=== PATIENT | female | born 1980 | race Hispanic/Latino ===

== ENCOUNTER → 2017-11-24 07:42 | Outpatient (CLI) | payer SELFPAY ==
[2017-11-24 08:32] LABS: Add Manual Diff / Slide Review NO; Basophils Percent Auto 0.5 % (0-2); Eosinophils Percent Auto 1.1 % (2-4); Hematocrit 41.2 % (36-46); Hemoglobin 13.9 g/dL (12.0-16.0); Lymphocytes Percent Auto 34.4 % (25-40); Mean Corpuscular HGB Conc 33.6 % (30-36); Mean Corpuscular Hemoglobin 30.7 PG (26-34); Mean Corpuscular Volume 91.2 fL (80-100); Monocytes Percent Auto 8.6 % (3-14); Neutrophils Absolute Auto 4200 /uL (3000-5900); Neutrophils Percent Auto 55.4 % (50-75); Platelet Count 260 X10^3/uL (150-400); Red Blood Cell Count 4.52 X10^6/uL (4.0-5.2); Red Cell Distribution Width 13.5 % (11.6-14.8); White Blood Cell Count 7.6 X10^3/uL (4.5-11.0)
[2017-11-24 08:41] LABS: Alanine Aminotransferase 43 IU/L (9-52); Albumin 4.1 g/dL (3.5-5.0); Albumin Globulin Ratio 1.4 (1.0-2.8); Alkaline Phosphatase 77 U/L (38-126); Aspartate Aminotransferase 23 IU/L (14-36); Bilirubin Total 0.6 mg/dL (0.2-1.3); Blood Urea Nitrogen 12 mg/dL (7-17); Calcium 8.4 mg/dL (8.4-10.2); Carbon Dioxide 26 mmol/L (22-32); Chloride 105 mmol/L (98-107); Cholesterol 162 mg/dL (140-199); Estimated Glomerular Filt Rate > 60.0 mL/min (>60); Glucose 114 mg/dL (70-100); HDL Cholesterol 39 mg/dL (40-60); HEMOLYSIS < 15 (0-50); LDL Cholesterol Calculated 107 mg/dL (<100); Potassium 4.2 mmol/L (3.4-5.1); Sodium 140 mmol/L (137-145); Total Protein 7.1 g/dL (6.3-8.2); Triglycerides 80 mg/dL (35-150)
[2017-11-26 10:01] LABS: Hemoglobin A1C% w Est Avg Glu 5.8 % (4.0-6.0)
== END ==
PROVIDERS: Visit Provider Internal Medicine
DX: Z00.00 Encounter for general adult medical examination without abnormal findings (principal); R73.09 Other abnormal glucose
CPT/HCPCS: 36415; 80053; 80061; 83036; 84443; 85025

== ENCOUNTER → 2017-12-12 14:34 | Outpatient (CLI) | payer SELFPAY ==
--- NOTE | 2017-12-12 14:43 | DI.MG.S_ITS ---
BILATERAL DIGITAL DIAGNOSTIC MAMMOGRAM 3D/2D: 12/12/2017 CLINICAL: Pain left breast. Baseline exam. No prior exams were available for comparison. The tissue of both breasts is extremely dense, which lowers the sensitivity of mammography. No significant masses, calcifications, or other findings are seen in either breast. IMPRESSION: INCOMPLETE: NEEDS ADDITIONAL IMAGING EVALUATION There is no abnormality seen in the left breast to correspond with the area of clinical concern, however, ultrasound is recommended. This exam was interpreted at Station ID: [id number]. NOTE: For mammograms, a report in lay terms will be sent to the patient. Approximately 15% of breast malignancies will not be visualized mammographically. In the management of a palpable breast mass, a negative mammogram must not discourage biopsy of a clinically suspicious lesion. Electronically Signed By: Jourdan wilde/jaquan:12/12/2017 22:38:22 ACR BI-RADS Category 0: Incomplete [id number]
--- NOTE | 2017-12-12 14:43 | DI.US.S_ITS ---
ULTRASOUND OF LEFT BREAST: 12/12/2017 CLINICAL: Focal left breast pain. Comparison is made to exam dated: 12/12/2017 [facility]. Color flow ultrasound of the left breast was performed. Lomas scale images of the real-time examination were reviewed. IMPRESSION: NEGATIVE There is no sonographic evidence of malignancy. There is no abnormality seen in the left breast to correspond with the area of clinical concern, however, clinical followup is recommended. A 1 year screening mammogram is recommended. This exam was interpreted at Station ID: [id number]. Electronically Signed By: Jourdan wilde/jaquan:12/12/2017 22:38:49 letter sent: Clinical Evaluation Ultrasound BI-RADS: 1 Negative
== END ==
PROVIDERS: PCP Obstetrics & Gynecology; Visit Provider Internal Medicine
DX: R92.8 Other abnormal and inconclusive findings on diagnostic imaging of breast (principal); N64.4 Mastodynia
CPT/HCPCS: 76642; 77066; G0279

== ENCOUNTER 2018-10-07 10:28 | Emergency (ER) | payer OTHER, SELFPAY ==
[2018-10-07 10:34] VITALS: BP 152/86; PULSE 86; RESP 14; TEMP 36.6; O2SAT 98
[2018-10-07] MEDS: ACETAMINOPHEN 325 MG TABLET 975 MG PO (11:27)
--- NOTE | 2018-10-07 13:34 | DI.RAD.S_ITS ---
PROCEDURE: XR LUMBAR SPINE 2-3V INDICATIONS: fell on lumbar back over edge of tub, tenderness mid lumbar TECHNIQUE: 2 views of the lumbar spine were acquired. COMPARISON: None. FINDINGS: Bones: 5 [id number] vertebrae are present. There is normal bony alignment. No vertebral body compression fractures. No suspicious bony lesions. There is mild degenerative disc disease at L3-L4 and L4-L5. Soft tissues: Overlying bowel gas pattern is normal. No suspicious soft tissue calcifications. IMPRESSION: No fractures. Mild degenerative disc disease. Dictated by: Gagan Rivera M.D. on 10/07/2018 at 13:22 Approved by: Gagan Rivera M.D. on 10/07/2018 at 13:24
--- NOTE | 2018-10-07 13:52 | ED.FALL ---
HPI - Fall <MARIEL Leach - Last Filed: 10/08/18 00:31> General Chief Complaint: Fall Stated Complaint: FELL AND BUMPED HEAD AND HIT ARM Time Seen by Provider: 10/07/18 13:05 Source: patient Mode of arrival: ambulatory Limitations: no limitations History of Present Illness HPI Narrative: Healthy 37-year-old female, presents to the emergency department after a fall work while trying to change a shower curtain. She tripped and fell backwards into the tub while hitting the back of her head, her low back, and the ulnar aspect of both forearms bilaterally on the tub. Complains of 3/10 dull aching pain to occipital region and lumbar spine, pain worse with palpation but not movement. She felt a little bit dizzy after the fall and again at felt dizzy and diaphoretic which lasted 1-2 minutes and then resolved. Denies loss of consciousness, headache, neck pain with movement, vision changes at this time, fatigue, bleeding, nausea vomiting or diarrhea, chest pain. Denies symptoms such as chest pain, dizziness, confusion prior to fall. MD complaint: fall Onset (ago): minute(s) Fall from: standing Fall witnessed: no Place fall occurred: work Loss of consciousness: none Prolonged down time: no Symptoms prior to fall: none Context: tripped/slipped Location of injury: head and back Severity: mild Severity scale (1-10): 3 Quality: aching Related Data Previous Rx's Medication Instructions Recorded ibuprofen [IBU] 800 mg PO Q8H PRN #14 tab 10/07/18 Allergies Allergy/AdvReac Type Severity Reaction Status Date / Time No Known Drug Allergies Allergy Verified 10/07/18 10:36 Review of Systems <MARIEL Leach - Last Filed: 10/08/18 00:31> Constitutional Denies chills, Denies fever(s), Denies lethargy and Denies weakness Eyes Denies eye discharge, Denies irritation and Denies loss of vision ENT Ears, Nose, Mouth, and Throat: Denies change in voice, Reports neck pain and Denies sore throat Cardiovascular Denies chest pain, Denies irregular heart rhythm, Denies lightheadedness, Denies palpitations, Denies dyspnea, Denies dyspnea on exertion and Denies orthopnea Respiratory Denies cough, Denies dyspnea, Denies dyspnea on exertion and Denies wheezing Gastrointestinal Gastrointestinal: Denies abdominal pain, Denies change in bowel habits, Denies diarrhea, Denies nausea and Denies vomiting Genitourinary Denies hematuria, Denies flank pain, Denies urinary incontinence and Denies urinary urgency Musculoskeletal Reports neck pain Comments: Back pain. Integumentary/Breasts Denies pruritus, Denies erythema, Denies rash and Denies wounds Neurologic Denies confusion, Denies loss of vision and Denies weakness Psychiatric Denies anxiety, Denies confusion, Denies depression, Denies homicidal ideation and Denies suicidal ideation Endocrine Denies palpitations Hematologic/Lymphatic Denies easy bruising Allergic/Immunologic Denies wheezing Exam <Sue MARIEL Alonzo - Last Filed: 10/08/18 00:31> Initial Vital Signs Initial Vital Signs: Vital Signs Temperature 97.9 F 10/07/18 10:34 Pulse Rate 86 10/07/18 10:34 Respiratory Rate 14 10/07/18 10:34 Blood Pressure 152/86 H 10/07/18 10:34 Pulse Oximetry 98 10/07/18 10:34 Const General: cooperative and well developed Nutritional Appearance: well nourished Orientation: alert, awake, oriented x3 and not confused [facility] Head: normocephalic, atraumatic, contusion (Small hematoma 2cm in diameter to right parietal area ), hematoma, No laceration, No raccoon eyes and No scalp tenderness Ears: external ears normal and TM's normal bilaterally Nose: external nose normal and No nasal discharge Face and sinus: sinuses nontender, face symmetric, no sinus tenderness and No dry mucous membranes Mouth: oral mucosae normal and moist mucous membranes Teeth and gingiva: dentition normal Throat: tonsils normal and uvula midline Eyes General: appearance normal, both eyes and all related structures Eyelids: eyelids normal Conjunctivae: conjunctivae normal Sclera: sclerae normal Pupils: PERRL EOM: EOM intact bilaterally Neck Neck: normal visual inspection, trachea midline, No lymphadenopathy, No midline deformity, tender (Paraspinal tenderness, no bony tenderness, FROM) and No JVD Lymphatic: No lymphedema Chest Chest: normal inspection of the chest Resp Effort & Inspection: normal respiratory effort, able to speak in complete sentences, no respiratory distress and no use of accessory muscles Auscultation: clear to auscultation bilaterally, no rales, no rhonchi and no wheezes Cardio Rate: regular rate Rhythm: regular rhythm Heart Sounds: no click, no gallops, no murmurs and no rubs Pulses: normal peripheral pulses GI Inspection: non-distended Palpation: soft, no hepatosplenomegaly, No guarding, No pulsatile mass and No tender Auscultation: normal bowel sounds Back/Spine/Pelvis Back: No CVA tenderness Cervical Spine: cervical ROM normal and No pain with cervical ROM Thoracic/Lumbar Spine: No thoracic spinal tenderness and lumbar spinal tenderness (with palpation) Sacroiliac Joints: nontender Skin General: no rashes or lesions noted, No jaundice and No petechiae Neuro General: alert, oriented x3, gait normal and no focal motor deficits Cranial Nerves: CN's II-XI intact bilaterally Speech: speech normal Extrem General: full ROM, no clubbing, cyanosis or edema, no pedal edema and no calf tenderness Psych Appearance: well kempt Mental Status: mental status grossly normal Attitude: cooperative Thought Content: normal and suicidality Judgment: judgment good <Nora Gonzales DO - Last Filed: 10/09/18 07:29> Initial Vital Signs Initial Vital Signs: Vital Signs Temperature 97.9 F 10/07/18 10:34 Pulse Rate 86 10/07/18 10:34 Respiratory Rate 14 10/07/18 10:34 Blood Pressure 152/86 H 10/07/18 10:34 Pulse Oximetry 98 10/07/18 10:34 PFSH <MARIEL Leach - Last Filed: 10/08/18 00:31> Medical History No significant medical problems (Acute) Family History (Updated 12/03/17 @ 21:04 by Snow Reeder) Mother Age: 76 Hypertension High cholesterol Father Diabetes mellitus Stroke Social History Smoking Status: Never smoker Family History Mother Age: 76 Hypertension High cholesterol Father Diabetes mellitus Stroke Social History Smoking Status: Never smoker Scores <MARIEL Leach - Last Filed: 10/08/18 00:31> Nexus Score for C-Spine Focal Neurologic deficit present: No Midline spinal tenderness present: No Altered level of conciousness present: No Intoxication present: No Distracting Injury Present: No Nexus Criteria for C-spine: 0 Course <MARIEL Leach - Last Filed: 10/08/18 00:31> Orders Ordered: Discontinued Medications Acetaminophen (Tylenol) 975 mg PO NOW ONE Stop: 10/07/18 11:17 Last Admin: 10/07/18 11:27 Dose: 975 mg Consultations Consultation #1: Staffed with Dr. Gonzales who agreed with plan of care Vital Signs - 8 hr 10/07/18 10:34 Temperature 97.9 F Pulse Rate 86 Respiratory Rate 14 Blood Pressure 152/86 H Pulse Oximetry 98 <Nora Gonzales DO - Last Filed: 10/09/18 07:29> Orders Ordered: Discontinued Medications Acetaminophen (Tylenol) 975 mg PO NOW ONE Stop: 10/07/18 11:17 Last Admin: 10/07/18 11:27 Dose: 975 mg Vital Signs - 8 hr 10/07/18 10:34 Temperature 97.9 F Pulse Rate 86 Respiratory Rate 14 Blood Pressure 152/86 H Pulse Oximetry 98 MDM - Fall <MARIEL Leach - Last Filed: 10/08/18 00:31> Medical Records Attestation: I reviewed the patient's medical records. Lab Data Attestation: I reviewed the patient's lab results. Point of Care Testing Test Results Negative Imaging Data Lumbar X-ray: Attestation: I personally reviewed and interpreted this imaging study as follows: Radiologist's impression: [address] [address] XRay Report Signed Patient: Brianne Wade#: [id number] : 1980Acct:[id number] Age/Sex: 37 / FDate of Service: 10/07/18 Loc: ED Accession Number: [id number] Procedure: XR lumbar spine 2-3V Ordering Provider: Sue Alonzo PROCEDURE: XR LUMBAR SPINE 2-3V INDICATIONS: fell on lumbar back over edge of tub, tenderness mid lumbar TECHNIQUE: 2 views of the lumbar spine were acquired. COMPARISON: None. FINDINGS: Bones: 5 [id number] vertebrae are present. There is normal bony alignment. No vertebral body compression fractures. No suspicious bony lesions. There is mild degenerative disc disease at L3-L4 and L4-L5. Soft tissues: Overlying bowel gas pattern is normal. No suspicious soft tissue calcifications. IMPRESSION: No fractures. Mild degenerative disc disease. Dictated by: Gagan Rivera M.D. on 10/07/2018 at 13:22 Approved by: Gagan Rivera M.D. on 10/07/2018 at 13:24 [facility] Narrative Medical decision making narrative: I suspect her symptoms are caused by muscle strain due to mechanism of injury, negative x-rays, nexus score of 0, intact neuro exam, tenderness paraspinal muscles. Less likely intracranial injury, or concussion, due to resolve symptoms and exam. I suspect her symptoms post fall or from a vagal response. Strict return precautions were discussed, work note was given per request. Follow up discussed for continued pain and soreness. <Nora Gonzales DO - Last Filed: 10/09/18 07:29> Lab Data Point of Care Testing Test Results Negative Discharge Plan Departure Patient Disposition: Home Clinical Impression: Fall Qualifiers: Encounter type: initial encounter Qualified Code(s): W19.XXXA - Unspecified fall, initial encounter Back pain Qualifiers: Back pain location: low back pain Chronicity: acute Back pain laterality: midline Sciatica presence: without sciatica Qualified Code(s): M54.5 - Low back pain Discharge Date/Time: 10/07/18 14:57 Interventions: ED Discharge Assessment Last Done: 10/07/18 14:57 Instructions: DI for Concussion, DI for Low Back Pain Activity Restrictions/Additional Instructions: Thank you for the entrusting me with you care today. Based on your exam today under x-ray, and appears ear pain is from bruising and muscle strain. Please take ibuprofen as needed for pain. Follow up with her primary care provider in 1-2 weeks if the pain has not resolved. Return to the emergency department for syncope, double vision or vision loss, chest pain, or confusion. Prescriptions: New ibuprofen [IBU] 800 mg tablet 800 mg PO Q8H PRN (Reason: pain) Qty: 14 RF: 0 Referrals: Shanice Bautista MD [Primary Care Provider] - Stand Alone Forms: Work Release Note <Nora Gonzales DO - Last Filed: 10/09/18 07:29> Cosign ED Attending Cosignature Attestation: I was immediately available in the department for consultation. This documentation has been reviewed and I agree with assessment and plan. Supervised by Nora Gonzales,
--- NOTE | 2018-10-07 14:02 | ED_ITS ---
HPI - Fall <MARIEL Leach - Last Filed: 10/08/18 00:31> General Chief Complaint: Fall Stated Complaint: FELL AND BUMPED HEAD AND HIT ARM Time Seen by Provider: 10/07/18 13:05 Source: patient Mode of arrival: ambulatory Limitations: no limitations History of Present Illness HPI Narrative: Healthy 37-year-old female, presents to the emergency department after a fall work while trying to change a shower curtain. She tripped and fell backwards into the tub while hitting the back of her head, her low back, and the ulnar aspect of both forearms bilaterally on the tub. Complains of 3/10 dull aching pain to occipital region and lumbar spine, pain worse with palpation but not movement. She felt a little bit dizzy after the fall and again at felt dizzy and diaphoretic which lasted 1-2 minutes and then resolved. Denies loss of consciousness, headache, neck pain with movement, vision changes at this time, fatigue, bleeding, nausea vomiting or diarrhea, chest pain. Denies symptoms such as chest pain, dizziness, confusion prior to fall. MD complaint: fall Onset (ago): minute(s) Fall from: standing Fall witnessed: no Place fall occurred: work Loss of consciousness: none Prolonged down time: no Symptoms prior to fall: none Context: tripped/slipped Location of injury: head and back Severity: mild Severity scale (1-10): 3 Quality: aching Related Data Previous Rx's Medication Instructions Recorded ibuprofen [IBU] 800 mg PO Q8H PRN #14 tab 10/07/18 Allergies Allergy/AdvReac Type Severity Reaction Status Date / Time No Known Drug Allergies Allergy Verified 10/07/18 10:36 Review of Systems <MARIEL Leach - Last Filed: 10/08/18 00:31> Constitutional Denies chills, Denies fever(s), Denies lethargy and Denies weakness Eyes Denies eye discharge, Denies irritation and Denies loss of vision ENT Ears, Nose, Mouth, and Throat: Denies change in voice, Reports neck pain and Denies sore throat Cardiovascular Denies chest pain, Denies irregular heart rhythm, Denies lightheadedness, Denies palpitations, Denies dyspnea, Denies dyspnea on exertion and Denies orthopnea Respiratory Denies cough, Denies dyspnea, Denies dyspnea on exertion and Denies wheezing Gastrointestinal Gastrointestinal: Denies abdominal pain, Denies change in bowel habits, Denies diarrhea, Denies nausea and Denies vomiting Genitourinary Denies hematuria, Denies flank pain, Denies urinary incontinence and Denies urinary urgency Musculoskeletal Reports neck pain Comments: Back pain. Integumentary/Breasts Denies pruritus, Denies erythema, Denies rash and Denies wounds Neurologic Denies confusion, Denies loss of vision and Denies weakness Psychiatric Denies anxiety, Denies confusion, Denies depression, Denies homicidal ideation and Denies suicidal ideation Endocrine Denies palpitations Hematologic/Lymphatic Denies easy bruising Allergic/Immunologic Denies wheezing Exam <Sue MARIEL Alonzo - Last Filed: 10/08/18 00:31> Initial Vital Signs Initial Vital Signs: Vital Signs Temperature 97.9 F 10/07/18 10:34 Pulse Rate 86 10/07/18 10:34 Respiratory Rate 14 10/07/18 10:34 Blood Pressure 152/86 H 10/07/18 10:34 Pulse Oximetry 98 10/07/18 10:34 Const General: cooperative and well developed Nutritional Appearance: well nourished Orientation: alert, awake, oriented x3 and not confused [facility] Head: normocephalic, atraumatic, contusion (Small hematoma 2cm in diameter to right parietal area ), hematoma, No laceration, No raccoon eyes and No scalp tenderness Ears: external ears normal and TM's normal bilaterally Nose: external nose normal and No nasal discharge Face and sinus: sinuses nontender, face symmetric, no sinus tenderness and No dry mucous membranes Mouth: oral mucosae normal and moist mucous membranes Teeth and gingiva: dentition normal Throat: tonsils normal and uvula midline Eyes General: appearance normal, both eyes and all related structures Eyelids: eyelids normal Conjunctivae: conjunctivae normal Sclera: sclerae normal Pupils: PERRL EOM: EOM intact bilaterally Neck Neck: normal visual inspection, trachea midline, No lymphadenopathy, No midline deformity, tender (Paraspinal tenderness, no bony tenderness, FROM) and No JVD Lymphatic: No lymphedema Chest Chest: normal inspection of the chest Resp Effort & Inspection: normal respiratory effort, able to speak in complete sentences, no respiratory distress and no use of accessory muscles Auscultation: clear to auscultation bilaterally, no rales, no rhonchi and no wheezes Cardio Rate: regular rate Rhythm: regular rhythm Heart Sounds: no click, no gallops, no murmurs and no rubs Pulses: normal peripheral pulses GI Inspection: non-distended Palpation: soft, no hepatosplenomegaly, No guarding, No pulsatile mass and No tender Auscultation: normal bowel sounds Back/Spine/Pelvis Back: No CVA tenderness Cervical Spine: cervical ROM normal and No pain with cervical ROM Thoracic/Lumbar Spine: No thoracic spinal tenderness and lumbar spinal tenderness (with palpation) Sacroiliac Joints: nontender Skin General: no rashes or lesions noted, No jaundice and No petechiae Neuro General: alert, oriented x3, gait normal and no focal motor deficits Cranial Nerves: CN's II-XI intact bilaterally Speech: speech normal Extrem General: full ROM, no clubbing, cyanosis or edema, no pedal edema and no calf tenderness Psych Appearance: well kempt Mental Status: mental status grossly normal Attitude: cooperative Thought Content: normal and suicidality Judgment: judgment good <Nora Gonzales DO - Last Filed: 10/09/18 07:29> Initial Vital Signs Initial Vital Signs: Vital Signs Temperature 97.9 F 10/07/18 10:34 Pulse Rate 86 10/07/18 10:34 Respiratory Rate 14 10/07/18 10:34 Blood Pressure 152/86 H 10/07/18 10:34 Pulse Oximetry 98 10/07/18 10:34 PFSH <MARIEL Leach - Last Filed: 10/08/18 00:31> Medical History No significant medical problems (Acute) Family History (Updated 12/03/17 @ 21:04 by Snow Reeder) Mother Age: 76 Hypertension High cholesterol Father Diabetes mellitus Stroke Social History Smoking Status: Never smoker Family History Mother Age: 76 Hypertension High cholesterol Father Diabetes mellitus Stroke Social History Smoking Status: Never smoker Scores <MARIEL Leach - Last Filed: 10/08/18 00:31> Nexus Score for C-Spine Focal Neurologic deficit present: No Midline spinal tenderness present: No Altered level of conciousness present: No Intoxication present: No Distracting Injury Present: No Nexus Criteria for C-spine: 0 Course <MARIEL Leach - Last Filed: 10/08/18 00:31> Orders Ordered: Discontinued Medications Acetaminophen (Tylenol) 975 mg PO NOW ONE Stop: 10/07/18 11:17 Last Admin: 10/07/18 11:27 Dose: 975 mg Consultations Consultation #1: Staffed with Dr. Gonzales who agreed with plan of care Vital Signs - 8 hr 10/07/18 10:34 Temperature 97.9 F Pulse Rate 86 Respiratory Rate 14 Blood Pressure 152/86 H Pulse Oximetry 98 <Nora Gonzales DO - Last Filed: 10/09/18 07:29> Orders Ordered: Discontinued Medications Acetaminophen (Tylenol) 975 mg PO NOW ONE Stop: 10/07/18 11:17 Last Admin: 10/07/18 11:27 Dose: 975 mg Vital Signs - 8 hr 10/07/18 10:34 Temperature 97.9 F Pulse Rate 86 Respiratory Rate 14 Blood Pressure 152/86 H Pulse Oximetry 98 MDM - Fall <MARIEL Leach - Last Filed: 10/08/18 00:31> Medical Records Attestation: I reviewed the patient's medical records. Lab Data Attestation: I reviewed the patient's lab results. Point of Care Testing Test Results Negative Imaging Data Lumbar X-ray: Attestation: I personally reviewed and interpreted this imaging study as follows: Radiologist's impression: [address] [address] XRay Report Signed Patient: Brianne Wade#: [id number] : 1980Acct:[id number] Age/Sex: 37 / FDate of Service: 10/07/18 Loc: ED Accession Number: [id number] Procedure: XR lumbar spine 2-3V Ordering Provider: Sue Alonzo PROCEDURE: XR LUMBAR SPINE 2-3V INDICATIONS: fell on lumbar back over edge of tub, tenderness mid lumbar TECHNIQUE: 2 views of the lumbar spine were acquired. COMPARISON: None. FINDINGS: Bones: 5 [id number] vertebrae are present. There is normal bony alignment. No vertebral body compression fractures. No suspicious bony lesions. There is mild degenerative disc disease at L3-L4 and L4-L5. Soft tissues: Overlying bowel gas pattern is normal. No suspicious soft tissue calcifications. IMPRESSION: No fractures. Mild degenerative disc disease. Dictated by: Gagan Rivera M.D. on 10/07/2018 at 13:22 Approved by: Gagan Rivera M.D. on 10/07/2018 at 13:24 [facility] Narrative Medical decision making narrative: I suspect her symptoms are caused by muscle strain due to mechanism of injury, negative x-rays, nexus score of 0, intact neuro exam, tenderness paraspinal muscles. Less likely intracranial injury, or concussion, due to resolve symptoms and exam. I suspect her symptoms post fall or from a vagal response. Strict return precautions were discussed, work note was given per request. Follow up discussed for continued pain and soreness. <Nora Gonzales DO - Last Filed: 10/09/18 07:29> Lab Data Point of Care Testing Test Results Negative Discharge Plan Departure Patient Disposition: Home Clinical Impression: Fall Qualifiers: Encounter type: initial encounter Qualified Code(s): W19.XXXA - Unspecified fall, initial encounter Back pain Qualifiers: Back pain location: low back pain Chronicity: acute Back pain laterality: midline Sciatica presence: without sciatica Qualified Code(s): M54.5 - Low back pain Discharge Date/Time: 10/07/18 14:57 Interventions: ED Discharge Assessment Last Done: 10/07/18 14:57 Instructions: DI for Concussion, DI for Low Back Pain Activity Restrictions/Additional Instructions: Thank you for the entrusting me with you care today. Based on your exam today under x-ray, and appears ear pain is from bruising and muscle strain. Please take ibuprofen as needed for pain. Follow up with her primary care provider in 1-2 weeks if the pain has not resolved. Return to the emergency department for syncope, double vision or vision loss, chest pain, or confusion. Prescriptions: New ibuprofen [IBU] 800 mg tablet 800 mg PO Q8H PRN (Reason: pain) Qty: 14 RF: 0 Referrals: Shanice Bautista MD [Primary Care Provider] - Stand Alone Forms: Work Release Note <Nora Gonzales DO - Last Filed: 10/09/18 07:29> Cosign ED Attending Cosignature Attestation: I was immediately available in the department for consultation. This documentation has been reviewed and I agree with assessment and plan. Supervised by Nora Gonzales,
[2018-10-07 14:57] VITALS: BP 133/77; PULSE 78; RESP 14; O2SAT 98
== END 2018-10-07 14:57 | disposition home or self-care (01) ==
PROVIDERS: Emergency Provider Nurse Practitioner; PCP Obstetrics & Gynecology
DX: M54.5 Low back pain (principal); W19.XXXA Unspecified fall, initial encounter; Y99.0 Civilian activity done for income or pay
CPT/HCPCS: 72100; 81025; 99283

== ENCOUNTER 2019-06-10 09:03 | Emergency (ER) | payer OTHER, SELFPAY ==
--- NOTE | 2019-06-10 09:59 | ED.BACK ---
HPI - Back Pain/Injury General Chief Complaint: Back Pain/Injury Stated Complaint: back pain Time Seen by Provider: 06/10/19 09:59 Source: patient Mode of arrival: Ambulatory Limitations: no limitations History of Present Illness HPI Narrative: Patient is a 38-year-old female who presents with back pain which started yesterday while at work. She works as a house builder she says yesterday she had things in her hands about 25 lb worth she said something down with her left hand and heard a pop in the middle of her spine. She has no numbness or tingling or change in urination. She took some Aleve when she got home but did have some trouble sleeping. It now hurts to midline. Complaint: back pain Onset (ago): day(s) (2) Duration: constant Similar Symptoms Previously: Yes Location: lumbar spine Severity: moderate Quality: sharp Radiation: none Related Data Previous Rx's Medication Instructions Recorded ibuprofen [IBU] 800 mg PO Q8H PRN #14 tab 10/07/18 cyclobenzaprine 5 mg PO TID PRN #10 tab 06/10/19 Allergies Allergy/AdvReac Type Severity Reaction Status Date / Time No Known Drug Allergies Allergy Verified 10/07/18 10:36 Review of Systems Review of Systems Narrative: GENERAL: Denies chills,fever HEENT: Denies throat pain RESPIRATORY: Denies dyspnea, cough, wheezing CARDIOVASCULAR: Denies chest pain, palpitations GASTROINTESTINAL: Denies nausea, vomiting MUSCULOSKELETAL: See HPI SKIN: No rash, no laceration, no pruritus NEUROLOGIC: Denies weakness, dizziness, headache, numbness 8 point review of systems is negative except for those stated above and HPI Patient History Medical History No significant medical problems (Acute) Family History Mother Age: 76 Hypertension High cholesterol Father Diabetes mellitus Stroke Social History Smoking Status: Never smoker Smoking Status: Never smoker alcohol intake frequency: 0-2 drinks per day Substance Use Type: does not use Exam Initial Vital Signs Initial Vital Signs: Vital Signs Temperature 97.6 F 06/10/19 10:07 Pulse Rate 84 06/10/19 10:07 Respiratory Rate 16 06/10/19 10:07 Blood Pressure 143/98 H 06/10/19 10:07 Pulse Oximetry 99 06/10/19 10:07 GENERAL: Alert well-appearing female and in no acute distress. HEENT: Head atraumatic,EOMI, pupils reactive, face symmetric CARDIOVASCULAR: Regular rate and rhythm without murmurs, rubs or gallops. RESPIRATORY: Breath sounds equal bilaterally, no wheezes rales or rhonchi. ABDOMEN: Soft, nontender. Normoactive bowel sounds all 4 quadrants. No guarding or rebound. BACK: Midline pain at L4 no paraspinal tenderness sensation in lower extremities intact EXTREMITIES: Normal range of motion, no clubbing or edema. Neurovascularly intact NEUROLOGICAL: Alert and oriented x4.Normal gait and speech. Cranial nerves II through XII grossly intact. SKIN: Warm, dry, no laceration, no petechiae, no rashes or lesions. Course Orders Ordered: ED Orders 06/10/19 10:04 XR lumbar spine 2-3V Stat Discontinued Medications Ibuprofen (Advil) 800 mg PO NOW ONE Stop: 06/10/19 10:05 Last Admin: 06/10/19 10:18 Dose: 800 mg Documented by: KUMAR Vital Signs Vital signs: Vital Signs - 8 hr 06/10/19 10:07 06/10/19 11:27 Temperature 97.6 F Pulse Rate 84 84 Respiratory Rate 16 12 Blood Pressure 143/98 H 142/82 H Pulse Oximetry 99 99 [facility] - Back Pain/Injury Imaging Data Extremity x-ray #1: Radiologist's Impression: PROCEDURE: XR LUMBAR SPINE 2-3V INDICATIONS: pain TECHNIQUE: 3 views of the lumbar spine were acquired. COMPARISON: [facility], , XR LUMBAR SPINE 2-3V, 10/07/2018, 13:54. FINDINGS: Bones: 5 [id number] vertebrae are present. There is normal bony alignment. No vertebral body compression fractures. No suspicious bony lesions. The disc heights are well-preserved. Soft tissues: Overlying bowel gas pattern is normal. No suspicious soft tissue calcifications. An IUD is seen at its expected location. IMPRESSION: No significant plain film abnormality is seen. Dictated by: Adonis Davis M.D. on 06/10/2019 at 10:03 [facility] Narrative Medical decision making narrative: Patient only wants ibuprofen for pain. Discussed with her she may require outpatient MRI if still having pain. Discharge Plan Departure Patient Disposition: Home Clinical Impression: Back strain Qualifiers: Encounter type: initial encounter Qualified Code(s): S39.012A - Strain of muscle, fascia and tendon of lower back, initial encounter Discharge Date/Time: 06/10/19 11:28 Instructions: DI for Low Back Pain Activity Restrictions/Additional Instructions: *You have been diagnosed with back strain *What to do: You may require further imaging such as MRI if you continue to have pain. However I recommend no lifting anything more than 10-15 lb until your back is better. Try heating pad. *Continue to take medications as directed Ibuprofen 800 mg every 8 hours if needed for nujn-gs-myafugvo pain Flexeril 5 mg every 8 hours if needed for mild to moderate muscle spasm this can cause drowsiness do not drive while taking *Follow up with your primary care provider in 2-3 days *Return to ER if you should have numbness tingling in lower extremities change in urination or any new, worsening or concerning symptoms Prescriptions: New cyclobenzaprine 5 mg tablet 5 mg PO TID PRN (Reason: muscle spasm) Qty: 10 RF: 0 No Action ibuprofen [IBU] 800 mg tablet 800 mg PO Q8H PRN (Reason: pain) Qty: 14 RF: 0 Referrals: Haylie Truong ARNP [Primary Care Provider] - Stand Alone Forms: Work Release Note
--- NOTE | 2019-06-10 10:04 | DI.RAD.S_ITS ---
PROCEDURE: XR LUMBAR SPINE 2-3V INDICATIONS: pain TECHNIQUE: 3 views of the lumbar spine were acquired. COMPARISON: [facility], CR, XR LUMBAR SPINE 2-3V, 10/07/2018, 13:54. FINDINGS: Bones: 5 [id number] vertebrae are present. There is normal bony alignment. No vertebral body compression fractures. No suspicious bony lesions. The disc heights are well-preserved. Soft tissues: Overlying bowel gas pattern is normal. No suspicious soft tissue calcifications. An IUD is seen at its expected location. IMPRESSION: No significant plain film abnormality is seen. Dictated by: Adonis Davis M.D. on 06/10/2019 at 10:03 Approved by: Adonis Davis M.D. on 06/10/2019 at 10:04
[2019-06-10 10:07] VITALS: BP 143/98; PULSE 84; RESP 16; TEMP 36.4; O2SAT 99; BMI 35.8
[2019-06-10] MEDS: IBUPROFEN 400 MG TABLET 800 MG PO (10:18)
--- NOTE | 2019-06-10 10:31 | PC.NURSE ---
Denies problems iwth bowel or bladder. Patient reports feeling a Pop when bent over and holding approx 25lbs of stuff. Increase pain throughout the night. Denies relief with OTC at home. No numbness or tingling down legs.
[2019-06-10 11:27] VITALS: BP 142/82; PULSE 84; RESP 12; O2SAT 99
== END 2019-06-10 11:28 | disposition home or self-care (01) ==
PROVIDERS: Emergency Provider Emergency Medicine; PCP Internal Medicine
DX: S39.012A Strain of muscle, fascia and tendon of lower back, initial encounter (principal); X50.9XXA Other and unspecified overexertion or strenuous movements or postures, initial encounter; Y99.0 Civilian activity done for income or pay
CPT/HCPCS: 72100; 99283